=== PATIENT | male | born 1955 | race Caucasian/White ===

== ENCOUNTER → 2017-02-20 | Outpatient (CLI) | payer BC ==
[~2017-02-20] MED LIST: LISI-725 PO
--- NOTE | 2017-02-20 21:22 | DIAGNOSTIC IMAGING REPORT ---
MRI CERVICAL WITHOUT CONTRAST CLINICAL HISTORY: Neck pain with left-sided radiculopathy. TECHNIQUE: Sagittal and axial T1, T2 and STIR images were obtained. COMPARISON STUDY: No previous studies for comparison. There are no suspicious areas of marrow replacement. No intrinsic cervical cord lesions are visualized. C2-3: There is no evidence of disc bulge or focal herniation. There is no spinal or foraminal stenosis. C3-4: There is no evidence of disc bulge or focal herniation. There is no spinal or foraminal stenosis. C4-5: There is a mild circumferential disc bulge. There is no significant spinal stenosis. There is mild bilateral foraminal narrowing C5-6 :There is a circumferential disc bulge. There is mild spinal stenosis. There is moderate right-sided foraminal stenosis and mild left-sided foraminal stenosis C6-7: There is no evidence of disc bulge or focal herniation. There is no evidence of spinal or foraminal stenosis. C7-T1: There is no evidence of disc bulge or focal herniation. There is no evidence of spinal or foraminal stenosis. IMPRESSION: 1. Multilevel spondylitic changes 2. Mild disc bulge and mild bilateral foraminal narrowing the C4-5 level 3. Disc bulge and mild spinal stenosis the C5-6 level. Moderate right-sided foraminal narrowing and mild left-sided foraminal narrowing Electronically signed by: Vishal Waller M.D. 02/20/2017 9:21 PM Dictated Date/Time: 02/20/2017 9:17 PM
== END | disposition home or self-care (01) ==
LOC: C.MRI 19:47
PROVIDERS: ATTEND Orthopaedic Surgery Orthopaedic Surgery of the Spine
DX: M54.2 Cervicalgia (principal)